=== PATIENT | female | born 1960 | race Caucasian/White ===

== ENCOUNTER → 2017-01-06 | Outpatient (REF) | payer OTHER ==
[2017-01-06 13:38] LABS: BASO # 0.1 K/mm3 (0.0-0.2); BASO % 0.9 % (0.0-1.0); EOS # 0.2 K/mm3 (0.0-0.50); EOS % 2.9 % (0.0-3.0); LARGE UNSTAINED CELL # 0.2 K/mm3 (0.0-0.4); LARGE UNSTAINED CELL % 2.4 % (0.0-4.0); LYMPH # 1.7 K/mm3 (1.5-4.5); MEAN CORPUSCULAR HEMOGLOBIN 33.2 pg (27.0-33.0); MEAN CORPUSCULAR HGB CONC 33.3 g/dl (32.0-36.5); MEAN CORPUSCULAR VOLUME 99.9 fl (80.0-96.0); MONO # 0.3 K/mm3 (0.0-0.8); MONO % 5.1 % (0.0-5.0); NEUTROPHILS # 4.1 K/mm3 (1.8-7.7); NEUTROPHILS % 62.7 % (36.0-66.0); PLATELET COUNT, AUTOMATED 232 k/mm3 (150-450); RED CELL DISTRIBUTION WIDTH 12.1 % (11.5-14.5); WHITE BLOOD COUNT 6.6 K/mm3 (4.0-10.0)
[2017-01-06 14:09] LABS: ERYTHROCYTE SEDIMENTATION RATE 4 mm/hr (0-30)
[2017-01-06 14:10] LABS: TOTAL PROTEIN 7.6 GM/DL (6.4-8.2)
[2017-01-06 14:13] LABS: VITAMIN B12 LEVEL 634 PG/ML (247-911)
[2017-01-06 14:14] LABS: FOLATE 23.9 NG/ML (>5.4)
[2017-01-07 10:35] LABS: ALBUMIN 5.27 GM/DL (3.29-5.55); ALBUMIN % 69.3 % (55.8-66.1); GAMMA GLOBULIN % 8.4 % (11.1-18.8)
[2017-01-09 00:08] LABS: VITAMIN E LEVEL 12.7 mg/L (5.3-16.8)
== END ==
LOC: M LABNEURO 13:09
PROVIDERS: ATTEND Psychiatry & Neurology Neurology
DX: F09 Unspecified mental disorder due to known physiological condition (principal)

== ENCOUNTER → 2019-01-17 | Outpatient (CLI) | payer OTHER | LOC: M SLEEP 19:45 | PROVIDERS: ATTEND Psychiatry & Neurology Neurology | DX: G47.00 Insomnia, unspecified (principal) ==